=== PATIENT | male | born 1930 | race Caucasian/White ===

== ENCOUNTER 2017-02-08 13:37 | Inpatient (IN) | payer OTHER ==
[~2017-02-08] VITALS: Ht 177.8 cm; Wt 87.4 kg
[~2017-02-08 13:37] MED LIST: ASCO10004 PO; ATOR10TA9 PO; CITA10TA4 PO; FINA5TAB4 PO; FLUT1DIS IH; LISI-170 PO; OMEP-110 PO; POTASSIUM PO; PROP15DR2 EACHEYE; PROP20TA PO; TAMS0.4C2 PO; TRIA1TAB PO; VERA120T74 PO
[2017-02-08] MEDS ORDERED: SODIUM CHLORIDE FLUSH 10ML SYR IVF ONE (14:30)
[2017-02-08] MEDS ORDERED: SODIUM CHLORIDE 0.9% 1,000ML IVBOLUS ONE (14:30)
[2017-02-08 14:48] LABS: HEMOGLOBIN 14.8 g/dL (13.7-18.0)
[2017-02-08 14:57] LABS: BLOOD UREA NITROGEN 33 mg/dL (7-18)
[2017-02-08 15:05] LABS: IS PT STATUS REG ER OR PRE ER? YES
[2017-02-08] MEDS ORDERED: ARTIFICIAL TEARS OPHTH SOLN 15ML EACHEYE SCH (16:30)
[2017-02-08] MEDS ORDERED: SODIUM CHLORIDE 0.9% 1,000 ML IV SCH (16:31)
[2017-02-08] MEDS ORDERED: BISACODYL 10 MG SUPP PR PRN (17:00)
[2017-02-08] MEDS ORDERED: ONDANSETRON 2MG/ML, 2ML IVPush PRN (17:00)
[2017-02-08] MEDS ORDERED: POLYETHYLENE GLYCOL 17 GM PACKET PO PRN (17:00)
[2017-02-08] MEDS ORDERED: DOCUSATE 100 MG CAPSULE PO PRN (17:00)
[2017-02-08 18:04] VITALS: BP 161/84
[2017-02-08] MEDS: HEPARIN 5,000 UNITS/ML, 1ML SQ SCH (18:26)
[2017-02-08] MEDS: SODIUM CHLORIDE 0.9% 1,000 ML IV SCH (18:32)
[2017-02-08 20:00] VITALS: BP_SYST 154; BP_SYST 187; BP_DIAS 76; BP_DIAS 92
[2017-02-09] VITALS (14 sets, daily range): BP systolic 136–199; BP diastolic 79–100
[2017-02-09] MEDS: HEPARIN 5,000 UNITS/ML, 1ML SQ SCH ×3 (02:27→17:37)
[2017-02-09 05:53] LABS: ABG COLLECTION SITE NOT DOCUMENTED
[2017-02-09 06:04] LABS: HEMATOCRIT 39.5 % (39.2-51.8); HEMOGLOBIN 13.2 g/dL (13.7-18.0); WHITE BLOOD COUNT 7.1 x10^3/uL (3.4-10)
[2017-02-09 06:11] LABS: BLOOD UREA NITROGEN 29 mg/dL (7-18)
[2017-02-09] MEDS: SODIUM CHLORIDE 0.9% 1,000 ML IV SCH (08:46)
[2017-02-09] MEDS ORDERED: OMEPRAZOLE 20 MG CAPSULE.DR PO SCH (09:00)
[2017-02-09] MEDS: ASCORBIC ACID 500 MG TABLET PO SCH (09:08)
[2017-02-09] MEDS: CITALOPRAM 10 MG TABLET PO SCH (09:08)
[2017-02-09] MEDS ORDERED: LORazepam 1MG TABLET PO ONE (11:00)
[2017-02-09] MEDS ORDERED: OMNIPAQUE 350 MG/ML, 75ML BOTTLE ONE (13:10)
[2017-02-09] MEDS: LISINOPRIL 20 MG TABLET PO SCH (13:26)
[2017-02-09] MEDS: TAMSULOSIN 0.4 MG CAP.ER.24H PO SCH (13:26)
[2017-02-09] MEDS: VERAPAMIL ER 120MG TABLET.ER PO SCH (13:26)
[2017-02-09] MEDS: FINASTERIDE 5 MG TABLET PO SCH (13:26)
[2017-02-09] MEDS ORDERED: LIDOCAINE 0.5%-EPI 1:200K, 50ML INFIL ONE (15:30)
[2017-02-09] MEDS ORDERED: GADOBUTROL 10 MMOL/10 ML VIAL ONE (16:26)
[2017-02-09] MEDS ORDERED: SODIUM CHLORIDE 0.9% 1,000 ML IV SCH (16:31)
[2017-02-09] MEDS: PROPRANOLOL 20 MG TABLET PO SCH ×2 (18:15→21:52)
[2017-02-09] MEDS: ATORVASTATIN 10 MG TABLET PO SCH (21:52)
[2017-02-09] MEDS: FLUTICASONE NASAL SPRAY 16GM NAS SCH (21:52)
[2017-02-10] VITALS (7 sets, daily range): BP systolic 131–187; BP diastolic 78–106
[2017-02-10] MEDS: HEPARIN 5,000 UNITS/ML, 1ML SQ SCH ×3 (01:57→17:09)
[2017-02-10] MEDS: LISINOPRIL 20 MG TABLET PO SCH (08:44)
[2017-02-10] MEDS: CITALOPRAM 10 MG TABLET PO SCH (08:44)
[2017-02-10] MEDS: VERAPAMIL ER 120MG TABLET.ER PO SCH (08:44)
[2017-02-10] MEDS: PROPRANOLOL 20 MG TABLET PO SCH ×3 (08:44→19:52)
[2017-02-10] MEDS: TAMSULOSIN 0.4 MG CAP.ER.24H PO SCH (08:44)
[2017-02-10] MEDS: FINASTERIDE 5 MG TABLET PO SCH (08:45)
[2017-02-10] MEDS: ASCORBIC ACID 500 MG TABLET PO SCH (08:45)
[2017-02-10] MEDS: ACETAMINOPHEN 325 MG TABLET PO PRN ×2 (12:50→19:52)
[2017-02-10] MEDS: ATORVASTATIN 10 MG TABLET PO SCH (19:51)
[2017-02-10] MEDS: FLUTICASONE NASAL SPRAY 16GM NAS SCH (19:51)
[2017-02-11 01:02] VITALS: BP_SYST 164; BP_SYST 179; BP_DIAS 103; BP_DIAS 88
[2017-02-11] MEDS: HEPARIN 5,000 UNITS/ML, 1ML SQ SCH ×3 (02:00→17:48)
[2017-02-11 05:30] LABS: HEMOGLOBIN 13.3 g/dL (13.7-18.0); WHITE BLOOD COUNT 7.2 x10^3/uL (3.4-10)
[2017-02-11 05:32] LABS: BLOOD UREA NITROGEN 19 mg/dL (7-18)
[2017-02-11 08:08] VITALS: BP_SYST 191; BP_SYST 200; BP_DIAS 103; BP_DIAS 98
[2017-02-11] MEDS: VERAPAMIL ER 120MG TABLET.ER PO SCH (09:13)
[2017-02-11] MEDS: TAMSULOSIN 0.4 MG CAP.ER.24H PO SCH (09:13)
[2017-02-11] MEDS: LISINOPRIL 20 MG TABLET PO SCH (09:13)
[2017-02-11] MEDS: FINASTERIDE 5 MG TABLET PO SCH (09:13)
[2017-02-11] MEDS: PROPRANOLOL 20 MG TABLET PO SCH ×3 (09:13→21:55)
[2017-02-11] MEDS: ASCORBIC ACID 500 MG TABLET PO SCH (09:13)
[2017-02-11] MEDS: CITALOPRAM 10 MG TABLET PO SCH (09:13)
[2017-02-11] MEDS ORDERED: POTASSIUM CHLORIDE 20 MEQ TAB.ER.PRT PO ONE (09:30)
[2017-02-11 12:28] VITALS: BP 169/91
[2017-02-11 17:46] VITALS: BP 129/79
[2017-02-11 20:08] VITALS: BP 151/84
[2017-02-11] MEDS: FLUTICASONE NASAL SPRAY 16GM NAS SCH (21:53)
[2017-02-11] MEDS: ATORVASTATIN 10 MG TABLET PO SCH (21:53)
[2017-02-12] MEDS: HEPARIN 5,000 UNITS/ML, 1ML SQ SCH ×3 (02:58→17:26)
[2017-02-12 03:07] VITALS: BP 151/78
[2017-02-12 06:40] LABS: BLOOD UREA NITROGEN 17 mg/dL (7-18)
[2017-02-12 06:56] VITALS: BP 172/95
[2017-02-12] MEDS: CITALOPRAM 10 MG TABLET PO SCH (08:13)
[2017-02-12] MEDS: VERAPAMIL ER 120MG TABLET.ER PO SCH (08:13)
[2017-02-12] MEDS: TAMSULOSIN 0.4 MG CAP.ER.24H PO SCH (08:13)
[2017-02-12] MEDS: LISINOPRIL 10 MG TABLET PO SCH (08:13)
[2017-02-12] MEDS: ASCORBIC ACID 500 MG TABLET PO SCH (08:13)
[2017-02-12] MEDS: FINASTERIDE 5 MG TABLET PO SCH (08:13)
[2017-02-12] MEDS: PROPRANOLOL 20 MG TABLET PO SCH ×3 (08:13→20:13)
[2017-02-12 10:50] VITALS: BP 158/83
[2017-02-12] MEDS: AMLODIPINE 2.5 MG TABLET PO SCH (10:53)
[2017-02-12] MEDS ORDERED: VIT1CAPS11 PO (10:54)
[2017-02-12] MEDS ORDERED: LISI-167 PO (11:01)
[2017-02-12 14:11] VITALS: BP 165/82
[2017-02-12 18:41] VITALS: BP 132/78
[2017-02-12] MEDS: ATORVASTATIN 10 MG TABLET PO SCH (20:13)
[2017-02-12] MEDS: FLUTICASONE NASAL SPRAY 16GM NAS SCH (20:13)
[2017-02-13] VITALS (7 sets, daily range): BP systolic 123–187; BP diastolic 76–97
[2017-02-13] MEDS: HEPARIN 5,000 UNITS/ML, 1ML SQ SCH ×3 (04:33→17:06)
[2017-02-13] MEDS ORDERED: POTASSIUM CHLORIDE 20 MEQ TAB.ER.PRT PO ONE (09:30)
[2017-02-13] MEDS: LISINOPRIL 10 MG TABLET PO SCH (09:37)
[2017-02-13] MEDS: PROPRANOLOL 20 MG TABLET PO SCH ×3 (09:38→21:56)
[2017-02-13] MEDS: FINASTERIDE 5 MG TABLET PO SCH (09:38)
[2017-02-13] MEDS: AMLODIPINE 2.5 MG TABLET PO SCH (09:38)
[2017-02-13] MEDS: TAMSULOSIN 0.4 MG CAP.ER.24H PO SCH (09:38)
[2017-02-13] MEDS: ASCORBIC ACID 500 MG TABLET PO SCH (09:38)
[2017-02-13] MEDS: VERAPAMIL ER 120MG TABLET.ER PO SCH (09:46)
[2017-02-13] MEDS: CITALOPRAM 10 MG TABLET PO SCH (09:46)
[2017-02-13] MEDS ORDERED: PRESERVISION PO SCH (10:00)
[2017-02-13] MEDS ORDERED: POTASSIUM CHLORIDE 10% 40 MEQ/30 ML UDC PO ONE (10:00)
[2017-02-13] MEDS ORDERED: BISACODYL 10 MG SUPP PR PRN (19:00)
[2017-02-13] MEDS ORDERED: ARTIFICIAL TEARS OPHTH SOLN 15ML EACHEYE SCH (19:00)
[2017-02-13] MEDS ORDERED: ONDANSETRON 2MG/ML, 2ML IVPush PRN (19:00)
[2017-02-13] MEDS ORDERED: POLYETHYLENE GLYCOL 17 GM PACKET PO PRN (19:00)
[2017-02-13] MEDS ORDERED: SYSTANE EACHEYE SCH ×2 (21:00→22:06)
[2017-02-13] MEDS: FLUTICASONE NASAL SPRAY 16GM NAS SCH (21:56)
[2017-02-13] MEDS: ATORVASTATIN 10 MG TABLET PO SCH (21:56)
[2017-02-14] VITALS (7 sets, daily range): BP systolic 121–173; BP diastolic 51–92
[2017-02-14] MEDS: HEPARIN 5,000 UNITS/ML, 1ML SQ SCH ×3 (02:26→17:53)
[2017-02-14 06:14] LABS: BLOOD UREA NITROGEN 16 mg/dL (7-18)
[2017-02-14] MEDS: VERAPAMIL ER 120MG TABLET.ER PO SCH (08:11)
[2017-02-14] MEDS: AMLODIPINE 2.5 MG TABLET PO SCH (08:12)
[2017-02-14] MEDS: ASCORBIC ACID 500 MG TABLET PO SCH (08:12)
[2017-02-14] MEDS: CITALOPRAM 10 MG TABLET PO SCH (08:12)
[2017-02-14] MEDS: TAMSULOSIN 0.4 MG CAP.ER.24H PO SCH (08:12)
[2017-02-14] MEDS: FINASTERIDE 5 MG TABLET PO SCH (08:12)
[2017-02-14] MEDS: LISINOPRIL 10 MG TABLET PO SCH (08:12)
[2017-02-14] MEDS: PROPRANOLOL 20 MG TABLET PO SCH ×3 (08:13→19:53)
[2017-02-14] MEDS: ATORVASTATIN 10 MG TABLET PO SCH (19:53)
[2017-02-14] MEDS: FLUTICASONE NASAL SPRAY 16GM NAS SCH (19:53)
[2017-02-15 02:00] VITALS: BP 166/88
[2017-02-15] MEDS: HEPARIN 5,000 UNITS/ML, 1ML SQ SCH ×2 (02:58→11:55)
[2017-02-15] MEDS: PROPRANOLOL 20 MG TABLET PO SCH ×2 (08:18→16:17)
[2017-02-15] MEDS: FINASTERIDE 5 MG TABLET PO SCH (08:19)
[2017-02-15] MEDS: VERAPAMIL ER 120MG TABLET.ER PO SCH (08:19)
[2017-02-15] MEDS: TAMSULOSIN 0.4 MG CAP.ER.24H PO SCH (08:20)
[2017-02-15] MEDS: CITALOPRAM 10 MG TABLET PO SCH (08:20)
[2017-02-15] MEDS: ASCORBIC ACID 500 MG TABLET PO SCH (08:20)
[2017-02-15] MEDS: LISINOPRIL 10 MG TABLET PO SCH (08:20)
[2017-02-15] MEDS: AMLODIPINE 2.5 MG TABLET PO SCH (08:21)
[2017-02-15 08:39] VITALS: BP 161/97
[2017-02-15 14:25] VITALS: BP 112/72
== END 2017-02-15 16:27 | DRG 683 ==
LOC: ED 15:59 → EDIP 16:00 → SUATTDRO 16:07 → ED 16:31 → 4WST 17:44
PROC: 0HQ1XZZ Repair Face Skin, External Approach (ICD-10-PCS; principal; 2017-02-09)
DX: N17.0 Acute kidney failure with tubular necrosis (principal); J96.11 Chronic respiratory failure with hypoxia; Q85.9 Phakomatosis, unspecified; I95.2 Hypotension due to drugs; E04.2 Nontoxic multinodular goiter; E78.5 Hyperlipidemia, unspecified; H35.30 Unspecified macular degeneration; I08.0 Rheumatic disorders of both mitral and aortic valves; I10 Essential (primary) hypertension; J32.0 Chronic maxillary sinusitis; F32.9 Major depressive disorder, single episode, unspecified; K21.9 Gastro-esophageal reflux disease without esophagitis; K44.9 Diaphragmatic hernia without obstruction or gangrene; N40.0 Benign prostatic hyperplasia without lower urinary tract symptoms; J43.9 Emphysema, unspecified; F41.9 Anxiety disorder, unspecified; K40.90 Unilateral inguinal hernia, without obstruction or gangrene, not specified as recurrent; M48.02 Spinal stenosis, cervical region; S01.81XA Laceration without foreign body of other part of head, initial encounter; W01.0XXA Fall on same level from slipping, tripping and stumbling without subsequent striking against object, initial encounter; Y93.01 Activity, walking, marching and hiking; Y92.238 Other place in hospital as the place of occurrence of the external cause; Z82.3 Family history of stroke; Z82.49 Family history of ischemic heart disease and other diseases of the circulatory system; Z85.46 Personal history of malignant neoplasm of prostate; Z85.828 Personal history of other malignant neoplasm of skin; Z87.891 Personal history of nicotine dependence; Z88.5 Allergy status to narcotic agent; Z98.42 Cataract extraction status, left eye; Z98.41 Cataract extraction status, right eye; Z79.899 Other long term (current) drug therapy; Y99.8 Other external cause status
CPT/HCPCS: 36415; 36600; 70450; 70486; 70552; 70553; 71010; 71260; 72156; 80048; 81003; 82040; 82436; 82533; 82570; 82803; 83735; 84133; 84300; 84436; 84443; 84484; 85025; 93005; 93306; 93880; 96360; A9585; J1644; Q9967; J7030